=== PATIENT | female | born 1980 | race Two or more races ===

== ENCOUNTER 2021-08-25 06:47 | Day surgery (SDC) | payer OTHER ==
[~2021-08-25 06:47] MED LIST: SINGULAIR5 MG PO
== END 2021-08-25 17:00 | disposition home or self-care (01) ==
LOC: CIR.AMB 06:47
PROVIDERS: ATTEND Orthopaedic Surgery Hand Surgery
DX: S62.014K Nondisplaced fracture of distal pole of navicular [scaphoid] bone of right wrist, subsequent encounter for fracture with nonunion (principal); Z20.822 Contact with and (suspected) exposure to COVID-19